=== PATIENT | male | born 1955 | race Asian ===

== ENCOUNTER 2024-06-14 11:00 | Outpatient (RCR) | payer MEDICARE, MEDICAID, SELFPAY ==
--- NOTE | 2024-05-31 10:01 | PTNOTE_ITS ---
PT OP Initial Eval Patient Information Outpatient Physical Therapy Treatment Date: 05/31/24 Visit Reasons: low back pain Medical Diagnosis: M54.50 Treatment Dx #1: LBP Start of Care: 05/31/24 Date of Onset: 2021 Smoking Status Smoking Status: Current every day smoker Cessation Counseling Provided: AMINA was advised that quitting smoking is the single most important factor to protect the health of themselves and their family. Discussed the benefits of quitting smoking with patient. Encouraged patient to quit smoking and provided Cessation assistance materials and resources. 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 Increased LBP with bending fwd. He is ambulating with cane limited distances about 30 minutes. The LBP today is 5-6/10 today and the lower LE's feel tight. PMH: HTN, smoker Imaging: results in chart Pt goal: for the LBP and LE soreness to go away Objective: B LE strength: R hip flexion: L hip: 4-/5 4/5 R knee: Flexion: 4-/5 4-/5 SLR: 60 deg B Hip add: 4/5 Sensation: intact to light touch of B tibias Trunk ArOM: ? B SB 50% of normal with pain ? Extension: 20% with pain around L4-5, L5-S1 ? Flexion: 10 from floor with LBP ? B rotation: full with pain at end range ? R SLR ROM: 45 deg. L SLR: 50 deg with posterior knee neural tension, LBP ? TTP: moderate paraspinals L5-S1 ? Neuro: B SLR: positive Assessment: Pt presentation consistent with Xray results of mild degenerative changes of L/S. Pt requires skilled therapy in order to meet goals and he has fair rehab potential. 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 Ind with HEP 2. Pt will bend fwd with proper form to protect L/S x5 3. Pt will ambulate x45' with <=3/10 LBP 4. Pt will do ADL's with 50% less tightness in B LE's. Treatment Plan ? 1. Manual therapy ? 2. Therex ? 3. Modalities as indicated, moist heat, ice, estim Frequency and Duration: 1-2x a week for 12 visits Certification Dates: 05/31/24 to 08/29/24 Procedure Charges OP PT Eval Mod Complex 30 minutes: Yes
--- NOTE | 2024-06-07 15:04 | PTNOTE_ITS ---
PT Outpatient Daily Note OP Daily Note Outpatient Physical Therapy Treatment Date: 06/07/24 Visit Reasons: low back pain Subjective: Pt doesn't speak much [place]ian but he understands and can respond to simple questions such as pain here? . Objective: See F/S for therex MT: [facility] L/S with flexbar x5' Assessment: Good demo of prone extension therex that he is doing as HEP. He is ambulating with better motor control than last round of therapy sessions Plan: Continue per POC Length of Time (minutes) of Treatment: 30 Minutes Procedure Charges Therapeutic Exercise 30 minutes: Yes
--- NOTE | 2024-06-14 11:29 | PT.ODAYNRPT ---
PT Outpatient Daily Note OP Daily Note Outpatient Physical Therapy Treatment Date: 06/14/24 Visit Reasons: low back pain Subjective: No new concerns. Objective: Please see flow sheet for ther ex list. Assessment: Vrebal, tactile cues and demonstrations given for pt to achieve desired motion with exercise due to language barrier, pt able to replicate with good technique. Plan: Continue with pOC. Length of Time (minutes) of Treatment: 30 Minutes Procedure Charges Therapeutic Exercise 30 minutes: Yes
== END 2024-06-18 23:59 | disposition home or self-care (01) ==
LOC: CPTX 11:00
PROVIDERS: PCP Family Medicine; Referring Provider Family Medicine; Visit Provider Family Medicine
DX: M54.50 Low back pain, unspecified (principal); R53.1 Weakness; G61.0 Guillain-Barre syndrome; I10 Essential (primary) hypertension; Z71.6 Tobacco abuse counseling; F17.210 Nicotine dependence, cigarettes, uncomplicated
CPT/HCPCS: 97110; 97162

== ENCOUNTER 2024-06-29 10:00 | Outpatient (RCR) | payer MEDICARE, MEDICAID, SELFPAY ==
--- NOTE | 2024-06-22 09:59 | PT.ODAYNRPT ---
PT Outpatient Daily Note OP Daily Note Outpatient Physical Therapy Treatment Date: 06/22/24 Visit Reasons: Low back pain Subjective: pt. reports less low back pain with continuation of therapy Objective: see flowsheet for ther-ex MT x5 minutes with flexbar Assessment: Less low back pain after MT Plan: continue PT per POC Length of Time (minutes) of Treatment: 30 Minutes Procedure Charges Therapeutic Exercise 30 minutes: Yes
--- NOTE | 2024-06-29 12:07 | PT.ODAYNRPT ---
PT Outpatient Daily Note OP Daily Note Outpatient Physical Therapy Treatment Date: 06/29/24 Visit Reasons: Low back pain Subjective: pt. reports ther-ex improves pain in low back and traction alleviated pain in L/S Objective: see flowsheet for ther-ex L/S traction x7 mins Assessment: pt. responded well to traction in L/S helped reduce pain Plan: continue PT per POC Length of Time (minutes) of Treatment: 30 Minutes Procedure Charges Therapeutic Exercise 30 minutes: Yes
== END 2024-07-19 23:59 | disposition home or self-care (01) ==
LOC: CPTX 10:00
PROVIDERS: PCP Family Medicine; Referring Provider Family Medicine; Visit Provider Family Medicine
DX: M54.50 Low back pain, unspecified (principal); R53.1 Weakness; G61.0 Guillain-Barre syndrome
CPT/HCPCS: 97110